=== PATIENT | male | born 1970 | race Two or more races ===

== ENCOUNTER 2019-12-27 06:27 | Emergency (ER) | payer BC ==
[~2019-12-27] VITALS: Ht 185.4 cm; Wt 84.8 kg
[2019-12-27] MEDS ORDERED: CRESTOR20 MG (06:46)
[2019-12-27] MEDS ORDERED: DICLOFENAC SODI75 MG PO (06:58)
[2019-12-27] MEDS ORDERED: GABAPENTIN300 M2 PO (21:57)
[2019-12-27] MEDS ORDERED: ORPHENADRINE C100 MG PO (21:57)
== END 2019-12-27 07:17 | disposition home or self-care (01) ==
LOC: ER 06:27
DX: B20 Human immunodeficiency virus [HIV] disease (principal); M51.27 Other intervertebral disc displacement, lumbosacral region

== ENCOUNTER 2019-12-27 19:25 | Emergency (ER) | payer BC ==
[~2019-12-27] VITALS: Ht 185.4 cm; Wt 84.8 kg
[~2019-12-27 19:25] MED LIST: CRESTOR20 MG; DICLOFENAC SODI75 MG PO
[2019-12-27] MEDS ORDERED: GABAPENTIN300 M2 PO (21:57)
[2019-12-27] MEDS ORDERED: ORPHENADRINE C100 MG PO (21:57)
== END 2019-12-27 22:11 | disposition home or self-care (01) ==
LOC: ER 19:25
DX: B20 Human immunodeficiency virus [HIV] disease (principal); S92.512A Displaced fracture of proximal phalanx of left lesser toe(s), initial encounter for closed fracture; M54.5 Low back pain; W22.09XA Striking against other stationary object, initial encounter; Y93.89 Activity, other specified; Y92.89 Other specified places as the place of occurrence of the external cause; Y99.8 Other external cause status; Z03.818 Encounter for observation for suspected exposure to other biological agents ruled out